=== PATIENT | male | born 1950 | race Caucasian/White ===

== ENCOUNTER 2021-11-21 13:24 | Emergency (ER) | payer OTHER ==
[~2021-11-21] VITALS: Ht 172.7 cm; Wt 59.0 kg
[2021-11-21 14:07] VITALS: BP 114/70
--- NOTE | 2021-11-21 14:13 | NUR ---
PT W/C ASSISTED TO BED 1.
--- NOTE | 2021-11-21 14:29 | NUR ---
PT TAKEN TO CT VIA RTODD.
--- NOTE | 2021-11-21 14:47 | NUR ---
PT TAKEN TO ER BED [address]
[2021-11-21 16:00] VITALS: BP 122/82
--- NOTE | 2021-11-21 16:00 | NUR ---
PT RESTING IN BED, VSS, WILL CONTINUE TO MONITOR.
--- NOTE | 2021-11-21 17:41 | NUR ---
Patient discharged with v/s stable. Written and verbal after care instructions given. Patient verbalized understanding. Ambulatory with walker accompanied by caregiver. All questions addressed prior to discharge. Advised to follow up with PMD.
--- NOTE | 2021-11-21 18:08 | NUR ---
The patient's care was reviewed and supervised by Josy Laws RN.
== END 2021-11-21 17:41 | disposition home or self-care (01) ==
LOC: MED 13:24
DX: S62.614A Displaced fracture of proximal phalanx of right ring finger, initial encounter for closed fracture (principal); S62.616A Displaced fracture of proximal phalanx of right little finger, initial encounter for closed fracture; S80.212A Abrasion, left knee, initial encounter; Z86.73 Personal history of transient ischemic attack (TIA), and cerebral infarction without residual deficits; W19.XXXA Unspecified fall, initial encounter; Y93.89 Activity, other specified; Y92.89 Other specified places as the place of occurrence of the external cause; Y99.8 Other external cause status
CPT/HCPCS: 70450; 71045; 73130; 73562; 99284; Q0092